=== PATIENT | male | born 1990 | race African-American/Black ===

== ENCOUNTER 2019-11-12 13:44 | Emergency (ER) | payer MEDICAID ==
[~2019-11-12] VITALS: Ht 193 cm; Wt 72.6 kg
[2019-11-12 13:58] VITALS: BP 127/76
--- NOTE | 2019-11-12 15:30 | NUR ---
Patient discharged to home in stable condition. Written and verbal after care instructions given. Patient verbalizes understanding of instruction.
== END 2019-11-12 15:30 | disposition home or self-care (01) ==
LOC: ER 13:46
DX: S90.562A Insect bite (nonvenomous), left ankle, initial encounter (principal); L08.9 Local infection of the skin and subcutaneous tissue, unspecified; Z60.2 Problems related to living alone; W57.XXXA Bitten or stung by nonvenomous insect and other nonvenomous arthropods, initial encounter; Y93.89 Activity, other specified; Y92.89 Other specified places as the place of occurrence of the external cause; Y99.8 Other external cause status
CPT/HCPCS: 82962-TC; 93971-TC